=== PATIENT | male | born 1995 | race Caucasian/White ===

== ENCOUNTER 2018-08-30 00:26 | Inpatient (IN) ==
[2018-08-30] MEDS ORDERED: Aluminum/Magnesium/Simethacone Susp 30 ML UDC PO ONE (00:48)
[2018-08-30] MEDS ORDERED: Morphine Sulfate Inj 8 MG/ML Vial IV.PUSH ONE (00:48)
[2018-08-30] MEDS ORDERED: Sod Chloride 0.9% Inj 1,000 ML IV.SIG ONE (00:48)
--- NOTE | 2018-08-30 00:52 | ED ---
HPI General Chief Complaint: Abdominal Pain Stated Complaint: Abd pain Time Seen by Provider: 08/30/18 00:40 Source: patient Mode of arrival: ambulatory Limitations: no limitations History of Present Illness HPI narrative: The patient is 22 years old and arrives with a complaint of abdominal pain for the past 2 days. He reports pain is primarily in the upper abdomen. No fever. One episode of vomiting occurred at the onset of pain. Patient reports loose stools over the past few days. Patient reports tolerating oral hydration without difficulty. Solid foods lead to vomiting. Patient denies subjective fever however upon arrival here her temp is 100.3. No similar prior episodes. Patient is otherwise healthy. MD complaint: Reports abdominal pain Onset (ago): day(s) Pain Consistency: constant Location: Reports epigastric Severity: moderate Quality: Reports cramping Radiation: Reports none Migration to: Reports no migration Relieving factors: nothing Exacerbating factors: eating and movement Associated symptoms: Reports nausea, vomiting and diarrhea Related Data Home Medications Medication Instructions Recorded Confirmed omeprazole 40 mg PO DAILY 08/30/18 08/30/18 Allergies Allergy/AdvReac Type Severity Reaction Status Date / Time No Known Allergies Allergy Verified 08/30/18 00:30 Review of Systems ROS: all other systems reviewed are negative PMFSH Medical History Medical History Patient denies medical problems (Acute) Surgical History Surgical History No history of previous surgery (Acute) Social History Social History Substance History: No History of Abuse Second Hand Smoke Exposure: No Smoking Status: Never smoker How Often Do You Have a Drink Containing Alcohol: 2 to 3 times a week Recent Travel in [facility] within the Last 8 Weeks: No Recent Out of Country Travel within the Last 8 Weeks: No Immunization History Tetanus Immunization: >5 Years Exam Narrative Exam Narrative: GENERAL: 22-year-old male well-nourished well-developed mild distress secondary to pain SKIN: Focused skin assessment warm/dry. HEAD: Atraumatic. Normocephalic. EYES: Pupils equal and round. No scleral icterus. No injection or drainage. ENT: No nasal bleeding or discharge. Mucous membranes pink and moist. NECK: Trachea midline. No JVD. CARDIOVASCULAR: Regular rate and rhythm. No murmur appreciated. RESPIRATORY: No accessory muscle use. Clear to auscultation. Breath sounds equal bilaterally. GASTROINTESTINAL: Tenderness palpation in the epigastrium. Voluntary guarding. MUSCULOSKELETAL: No obvious deformities. No clubbing. No cyanosis. No edema. NEUROLOGICAL: Awake and alert. No obvious cranial nerve deficits. Motor grossly within normal limits. Normal speech. PSYCHIATRIC: Appropriate mood and affect; insight and judgment normal. Course Initial Documented Vital Signs Temperature 100.2 F H 08/30/18 00:28 Pulse Rate 103 H 08/30/18 00:28 Respiratory Rate 16 08/30/18 00:28 Blood Pressure 152/82 H 08/30/18 00:28 Pulse Oximetry 99 08/30/18 00:28 Last Documented Vital Signs Temperature 100.2 F H 08/30/18 00:28 Pulse Rate 103 H 08/30/18 00:28 Respiratory Rate 18 08/30/18 01:39 Blood Pressure 152/82 H 08/30/18 00:28 Pulse Oximetry 99 08/30/18 00:28 Medical Decision Making MDM Narrative Medical decision making narrative: The lipase is elevated at approximately 1250. The patient reports drinking 3-4 beers once or twice a week. He denies alcohol abuse otherwise. Case discussed with hospitalist Dr. Brown. Medical Screen Exam Complete: Yes Emergency Medical Condition: Yes Differential Diagnosis Differential Diagnosis: Constipation, Gastritis, Acute Cholecystitis, Biliary Colic, Pancreatitis, MARK, Hepatitis, Bowel Obstruction, Cystitis, Mesenteric Ischemia, AAA, Appendicitis, Renal Stone/Hydronephrosis, GERD, perforated viscous Lab Data Lab results reviewed: Yes I reviewed the patient's lab results. Result diagrams: 08/30/18 00:50 08/30/18 00:50 Lab Results 08/30/18 08/30/18 08/30/18 Range/Units 00:50 00:50 01:20 WBC 10.6 (4.0-11.0) th/mm3 RBC 4.60 (4.50-5.90) mil/mm3 Hgb 14.9 (13.0-17.0) gm/dL Hct 44.0 (39.0-51.0) % MCV 95.6 (80.0-100.0) fL MCH 32.4 (27.0-34.0) pg MCHC 33.9 (32.0-36.0) % RDW 13.2 (11.6-17.2) % Plt Count 159 (150-450) th/mm3 MPV 8.4 (7.0-11.0) fL Neut % (Auto) 78.7 H (16.0-70.0) % Lymph % (Auto) 11.7 (9.0-44.0) % [place] % (Auto) 8.8 H (0.0-8.0) % Eos % (Auto) 0.6 (0.0-4.0) % Baso % (Auto) 0.2 (0.0-2.0) % Neut # (Auto) 8.3 H (1.8-7.7) th/mm3 Lymph # (Auto) 1.2 (1.0-4.8) th/mm3 [place] # (Auto) 0.9 (0.0-0.9) th/mm3 Eos # (Auto) 0.1 (0.0-0.4) th/mm3 Baso # (Auto) 0.0 (0.0-0.2) th/mm3 WBC Differential . Differential Comment Auto diff final Sodium 138 (136-145) meq/L Potassium 4.2 (3.5-5.1) meq/L Chloride 104 (98-107) meq/L Carbon Dioxide 27.7 (21.0-32.0) meq/L Anion Gap 6 (5-15) meq/L BUN 7 (7-18) mg/dL Creatinine 1.01 (0.60-1.30) mg/dL Estimated GFR Greater than 89 (>89) mL/min Random Glucose 102 (74-106) mg/dL Calcium 9.0 (8.5-10.1) mg/dL Total Bilirubin 1.2 H (0.2-1.0) mg/dL AST 16 (15-37) U/L ALT 22 (12-78) U/L Alkaline Phosphatase 56 (45-117) U/L Total Protein 7.7 (6.4-8.2) g/dL Albumin 4.3 (3.4-5.0) g/dL Lipase 1248 H (73-393) U/L Urine Color Yellow (Yellw/Straw) Urine Clarity Hazy H (Clear) Urine pH 6.0 (5.0-8.5) Ur Specific [place] 1.015 (1.002-1.035) Urine Protein Negative (Neg-Trace) mg/dL Urine Glucose (UA) Negative (Negative) mg/dL Urine Ketones 20 (Negative) mg/dL Urine Occult Blood Negative (Negative) Urine Nitrate Negative (Negative) Urine Bilirubin Negative (Negative) Urine Urobilinogen Less than 2 (Less than 2) mg/dL Ur Leukocyte Esterase Negative (Negative) Urine RBC Less than 1 (0-3) /hpf Urine WBC 1 (0-5) /hpf Ur Squamous Epith Cells <1 (0-5) /hpf Urine Mucus Few H (Occasional) /lpf Micro UA Comment Culture not ind Ur Microscopic Review Not Reportable Urine Culture Comments Culture not ind LFTs normal Imaging Data Attestation: I personally reviewed and interpreted this imaging study as follows : (No sign of appendicitis) Radiologist's impression: Abdomen/Pelvis CT 08/30/18 00:48 CONCLUSION: No evidence of acute abdominal or pelvic process. No masses are identified. Discharge Plan Discharge Disposition Patient Disposition: 30 Still Patient Physicians Team ED Provider: Waylon Segura Primary Care Provider: Primary Care Jayla Armstrong Attending Provider: Miesha Brown Status ED Status: Admitted Observation Patient
[2018-08-30 01:04] LABS: Baso % (Auto) 0.2 % (0.0-2.0); Eos # (Auto) 0.1 th/mm3 (0.0-0.4); Eos % (Auto) 0.6 % (0.0-4.0); Hemoglobin 14.9 gm/dL (13.0-17.0); Lymph # (Auto) 1.2 th/mm3 (1.0-4.8); Lymph % (Auto) 11.7 % (9.0-44.0); Mean Corpuscular HGB Conc 33.9 % (32.0-36.0); Mean Corpuscular Hemoglobin 32.4 pg (27.0-34.0); Mean Corpuscular Volume 95.6 fL (80.0-100.0); Mean Platelet Volume 8.4 fL (7.0-11.0); Mono # (Auto) 0.9 th/mm3 (0.0-0.9); Mono % (Auto) 8.8 % (0.0-8.0); Neut # (Auto) 8.3 th/mm3 (1.8-7.7); Neut % (Auto) 78.7 % (16.0-70.0); Platelet Count 159 th/mm3 (150-450); Red Cell Distribution Width 13.2 % (11.6-17.2); White Blood Count 10.6 th/mm3 (4.0-11.0)
[2018-08-30] MEDS ORDERED: Morphine Inj 4 MG/ML Vial IV.SIG ONE (01:15)
[2018-08-30 01:21] LABS: Alanine Aminotransferase 22 U/L (12-78); Albumin 4.3 g/dL (3.4-5.0); Anion Gap 6 meq/L (5-15); Aspartate Aminotransferase 16 U/L (15-37); Blood Urea Nitrogen 7 mg/dL (7-18); Carbon Dioxide 27.7 meq/L (21.0-32.0); Chloride 104 meq/L (98-107); Glomerular Filtration Rate Greater Than 89 mL/min (>89); Glucose,Random 102 mg/dL (74-106); Lipase 1248 U/L (73-393); Potassium 4.2 meq/L (3.5-5.1); Sodium 138 meq/L (136-145)
[2018-08-30 01:23] LABS: Alkaline Phosphatase 56 U/L (45-117); Total Protein 7.7 g/dL (6.4-8.2)
[2018-08-30] MEDS ORDERED: Piperacil/Tazo 4.5 GM Premix 4.5 GM/100 ML BAG IV.SIG ONE (01:30)
[2018-08-30 01:34] LABS: Bilirubin,Urine Negative (Negative); Clarity,Urine Hazy (Clear); Color,Urine Yellow (Yellw/Straw); Glucose,Urine (UA) Negative (Negative); Leukocyte Esterase,Urine Negative (Negative); Mucus,Urine Few /lpf (Occasional); Nitrite,Urine Negative (Negative); Specific Gravity,Urine 1.015 (1.002-1.035); Squamous Epithelial Cell,Urine <1 /hpf (0-5)
--- NOTE | 2018-08-30 02:41 | CT ---
EXAM DATE: 08/30/2018 12:50 AM EDT AGE/SEX: 22 years / Male INDICATIONS: Upper abdominal pain with nausea and vomiting. CLINICAL DATA: This is the patient's initial encounter. Patient reports that signs and symptoms have been present for 2 days and indicates a pain score of 4/10. MEDICAL/SURGICAL HISTORY: None. None. ORAL CONTRAST: No oral contrast ingested. RADIATION DOSE: 5.91 CTDI (mGy) COMPARISON: No prior exams available for comparison. TECHNIQUE: Multiple contiguous axial images were obtained through the abdomen and pelvis following b olus infusion of 95 ml Omnipaque 350 (iohexol) nonionic water-soluble contrast as a single exam dos e. No oral contrast ingested. Using automated exposure control and adjustment of the mA and/or kV ac cording to patient size, radiation dose was kept as low as reasonably achievable to obtain optimal di agnostic quality images. DICOM format image data is available electronically for review and comparis on. FINDINGS: Examination of the lung bases demonstrates no abnormality. No pleural fluid is identified. No pulmona ry nodules are present. The liver and spleen are free of focal defects. The gallbladder and pancreas demonstrate no abnormality. The adrenal glands are normal. The kidneys demonstrate no evidence of cathy id renal mass or hydronephrosis. No free fluid or abdominal masses are identified. No para-aortic jared nopathy is seen. Examination of the pelvis demonstrates no evidence of free fluid or pelvic mass. No abnormally enlarg ed inguinal or retroperitoneal lymph nodes are present. The bladder is unremarkable. CONCLUSION: No evidence of acute abdominal or pelvic process. No masses are identified. Electronically signed by: Ildefonso Brooke MD 08/30/2018 2:40 AM EDT
--- NOTE | 2018-08-30 03:30 | P.HP ---
History of Present Illness Service: [facility] Primary Care Physician: No Primary Care Physician History of Present Illness: 22-year-old male with no significant past medical history for evaluation of abdominal pain. The patient reports upon waking on Monday had severe epigastric pain. The pain does not radiate. He endorses nausea and emesis x1. The pain has not subsided and he came to the emergency department for further evaluation. No fever/chills. No chest pain or shortness of breath. No diarrhea. Review of Systems All other systems reviewed negative except as stated in HPI PMFSH - History History Provided By: Patient - Medical History Medical History: Medical History (Last Reviewed 08/30/18 @ 03:28 by Miesha Brown MD) Patient denies medical problems - Surgical History Surgical History: Surgical History (Last Reviewed 08/30/18 @ 03:28 by Miesha Brown MD) No history of previous surgery - Family History Family History: Family History (Last Updated 08/30/18 @ 03:28 by Miesha Brown MD) Other Family history normal - Tobacco History Second Hand Smoke Exposure: No Tobacco Use In Past 30 Days: No Smoking Status: Never smoker - Alcohol History How Often Do You Have a Drink Containing Alcohol: 2 to 3 times a week - Substance Use History Substance History: No History of Abuse - Travel History Recent Travel in the [place] Within the Last 8 Weeks: No Recent Travel Out of the Country Within the Last 8 Weeks: No - Immunization History Tetanus Immunization: >5 Years Medications and Allergies Active Medications: Active Medications Sodium Chloride (Ns Flush) 2 ml IV.FLUSH PRN PRN PRN Reason: FLUSH AFTER USING IV ACCESS Last Admin: 08/30/18 01:17 Dose: 2 ml Allergies Allergy/AdvReac Type Severity Reaction Status Date / Time No Known Allergies Allergy Verified 08/30/18 00:30 Home Medications Medication Instructions Recorded Confirmed Type omeprazole 40 mg PO DAILY 08/30/18 08/30/18 History Exam Vital signs: Vital Signs 08/30/18 00:28 08/30/18 01:39 Temperature 100.2 F H Pulse Rate 103 H Respiratory Rate 16 18 Blood Pressure 152/82 H Pulse Oximetry 99 Intake & Output 08/29/18 08/29/18 08/30/18 06:59 18:59 06:59 Weight 72.575 kg Narrative: Gen.: No acute distress Head: Normocephalic. Atraumatic. EENT: Pupils equal round and reactive to light. Nose without drainage. Airway intact. Throat without injection. Cardiovascular: Regular rate and rhythm. No murmurs, rubs or gallops. Respiratory: Lungs clear to auscultation bilaterally. No wheezes or rhonchi. Abdomen: Soft, tender to palpation in the epigastrium, nondistended. No peritoneal signs. Musculoskeletal: No gross deformities. No edema. Skin: No obvious rashes or erythema. Neuro: Sensory and motor grossly intact. Cranial nerves II through XII grossly intact. Results - Labs CBC & Chem 7: 08/30/18 00:50 08/30/18 00:50 Labs: Laboratory Results - last 24 hr 08/30/18 08/30/18 08/30/18 00:50 00:50 01:20 WBC 10.6 RBC 4.60 Hgb 14.9 Hct 44.0 MCV 95.6 MCH 32.4 MCHC 33.9 RDW 13.2 Plt Count 159 MPV 8.4 Neut % (Auto) 78.7 H Lymph % (Auto) 11.7 [place] % (Auto) 8.8 H Eos % (Auto) 0.6 Baso % (Auto) 0.2 Neut # (Auto) 8.3 H Lymph # (Auto) 1.2 [place] # (Auto) 0.9 Eos # (Auto) 0.1 Baso # (Auto) 0.0 WBC Differential . Differential Comment Auto diff final Sodium 138 Potassium 4.2 Chloride 104 Carbon Dioxide 27.7 Anion Gap 6 BUN 7 Creatinine 1.01 Estimated GFR Greater than 89 Random Glucose 102 Calcium 9.0 Total Bilirubin 1.2 H AST 16 ALT 22 Alkaline Phosphatase 56 Total Protein 7.7 Albumin 4.3 Lipase 1248 H Urine Color Yellow Urine Clarity Hazy H Urine pH 6.0 Ur Specific [place] 1.015 Urine Protein Negative Urine Glucose (UA) Negative Urine Ketones 20 Urine Occult Blood Negative Urine Nitrate Negative Urine Bilirubin Negative Urine Urobilinogen Less than 2 Ur Leukocyte Esterase Negative Urine RBC Less than 1 Urine WBC 1 Ur Squamous Epith Cells <1 Urine Mucus Few H Micro UA Comment Culture not ind Ur Microscopic Review Not Reportable Urine Culture Comments Culture not ind - Imaging Impressions Abdomen/Pelvis CT 08/30/18 00:48 CONCLUSION: No evidence of acute abdominal or pelvic process. No masses are identified. Caprini VTE Risk Assessment Caprini VTE Risk Assessment: No/Low Risk (score <= 1) Caprini Risk Assessment Model: Point Value = 1 Point Value = 2 Point Value = 3 Point Value = 5 Age 41-60 Minor surgery BMI > 25 kg/m2 Swollen legs Varicose veins or History of unexplained or recurrent spontaneous Oral contraceptives or hormone replacement Sepsis (< 1 month) Serious lung disease, including pneumonia (< 1 month) Abnormal pulmonary function Acute myocardial infarction Congestive heart failure (< 1 month) History of inflammatory bowel disease Medical patient at bed rest Age 61-74 Arthroscopic surgery Major open surgery (> 45 min) Laparoscopic surgery (> 45 min) Malignancy Confined to bed (> 72 hours) Immobilizing plaster cast Central venous access Age >= 75 History of VTE Family history of VTE Factor V Leiden Prothrombin [id number] Lupus anticoagulant Anticardiolipin antibodies Elevated serum homocysteine Heparin-induced thrombocytopenia Other congenital or acquired thrombophilia Stroke (< 1 month) Elective arthroplasty Hip, pelvis, or leg fracture Acute spinal cord injury (< 1 month) Prophylaxis Regimen: Total Risk Factor Score Risk Level Prophylaxis Regimen 0-1 Low Early ambulation 2 Moderate Order ONE of the following: *Sequential Compression Device (SCD) *Heparin 5000 units SQ BID 3-4 Higher Order ONE of the following medications: *Heparin 5000 units SQ TID *Enoxaparin/Lovenox 40 mg SQ daily (WT < 150 kg, CrCl > 30 mL/min) *Enoxaparin/Lovenox 30 mg SQ daily (WT < 150 kg, CrCl > 10-29 mL/min) *Enoxaparin/Lovenox 30 mg SQ BID (WT < 150 kg, CrCl > 30 mL/min) AND/OR *Sequential Compression Device (SCD) 5 or more Highest Order ONE of the following medications: *Heparin 5000 units SQ TID (Preferred with Epidurals) *Enoxaparin/Lovenox 40 mg SQ daily (WT < 150 kg, CrCl > 30 mL/min) *Enoxaparin/Lovenox 30 mg SQ daily (WT < 150 kg, CrCl > 10-29 mL/min) *Enoxaparin/Lovenox 30 mg SQ BID (WT < 150 kg, CrCl > 30 mL/min) AND *Sequential Compression Device (SCD) Assessment and Plan - Plan Assessment/plan: 1. Pancreatitis Lipase 1248 CT of the abdomen/pelvis negative for acute process IV fluid hydration N.p.o. Morphine for pain Follow lipase levels FEN N.p.o. Electrolytes: Monitor and replete as needed NS at 125 cc/hour
[2018-08-30] MEDS: Morphine Sulfate Inj 8 MG/ML Vial IV.PUSH PRN ×2 (10:27→18:14)
--- NOTE | 2018-08-30 12:08 | P.PNADD ---
Addendum to Inpatient Note Reason for Addendum: Additional Documentation Additional information: Patient seen and examined, right upper quadrant pain, a 5. Does not want to take narcotics. No nausea, no vomiting. Denies daily alcohol use, indicates he drank 3 beers on Monday. No prior history of pancreatitis. Follow lipase level in the morning
[2018-08-30 20:10] VITALS: O2SAT 98
[2018-08-31] MEDS: Morphine Sulfate Inj 8 MG/ML Vial IV.PUSH PRN (06:08)
[2018-08-31 07:22] LABS: Hematocrit 39.6 % (39.0-51.0); Hemoglobin 13.7 gm/dL (13.0-17.0); Mean Corpuscular HGB Conc 34.7 % (32.0-36.0); Mean Corpuscular Volume 95.2 fL (80.0-100.0); Mean Platelet Volume 8.8 fL (7.0-11.0); Platelet Count 128 th/mm3 (150-450); Red Blood Count 4.16 mil/mm3 (4.50-5.90); Red Cell Distribution Width 12.5 % (11.6-17.2); White Blood Count 6.7 th/mm3 (4.0-11.0)
[2018-08-31 08:02] LABS: Anion Gap 6 meq/L (5-15); Blood Urea Nitrogen 9 mg/dL (7-18); Calcium 8.8 mg/dL (8.5-10.1); Carbon Dioxide 27.6 meq/L (21.0-32.0); Chloride 103 meq/L (98-107); Glomerular Filtration Rate Greater Than 89 mL/min (>89); Glucose,Random 72 mg/dL (74-106); Lipase 227 U/L (73-393); Potassium 4.1 meq/L (3.5-5.1); Sodium 137 meq/L (136-145)
--- NOTE | 2018-08-31 08:46 | P.PN ---
Subjective Interval history: Follow-up for pancreatitis-abdominal pain improved, now a 5. Wants something to drink. No nausea, no vomiting. No fever overnight. Slept fair. Anxious to go home. Denies any chest pain, no shortness of breath. Physical Exam Vital signs: Vital Signs 08/30/18 12:00 08/30/18 16:00 08/30/18 20:00 Temperature 99.3 F 99.5 F 98.2 F Pulse Rate 90 86 107 H Respiratory Rate 17 17 16 Blood Pressure 116/60 138/66 135/78 Pulse Oximetry 98 99 98 08/31/18 00:00 Temperature 99.3 F Pulse Rate 106 H Respiratory Rate 17 Blood Pressure 121/60 Pulse Oximetry 98 Intake & Output 08/30/18 08/31/18 08/31/18 18:59 06:59 18:59 Intake Total 900 / 900 1999 / 1999 Balance 900 / 900 1999 / 1999 Weight 73.5 kg Intake: IV 900 / 900 1999 / 2000 LR 1000 mL Inj 1,000 ML @ 125 900 / 900 2000 / 2000 mls/hr IV.CONT .Q8H [facility] Rx#: [id number] Oral 0 / 0 Other: # Voids 3 2 Date of Last Bowel Movement 08/29/18 # Bowel Movements 0 Narrative: Gen.: 22-year-old well-developed well-nourished. Head: Normocephalic. Atraumatic. EENT: Pupils equal round and reactive to light. Nose without drainage. Airway intact. Throat without injection. Cardiovascular: Regular rate and rhythm. No murmurs, rubs or gallops. Respiratory: Lungs clear to auscultation bilaterally. No wheezes or rhonchi. Abdomen: Soft, tender to palpation in the epigastrium, nondistended. No peritoneal signs. Musculoskeletal: No gross deformities. No edema. Skin: No obvious rashes or erythema. Neuro: Neurologically intact. No focal deficits. Results - Labs CBC & Chem 7: 08/31/18 05:53 08/31/18 05:53 Laboratory Results - last 24 hr 08/30/18 08/31/18 08/31/18 17:19 05:53 05:53 WBC 6.7 RBC 4.16 L Hgb 13.7 Hct 39.6 MCV 95.2 MCH 33.0 MCHC 34.7 RDW 12.5 Plt Count 128 L MPV 8.8 Sodium 137 Potassium 4.1 Chloride 103 Carbon Dioxide 27.6 Anion Gap 6 BUN 9 Creatinine 0.89 Estimated GFR Greater than 89 Random Glucose 72 L Calcium 8.8 Lipase 277 227 Assessment and Plan - Assessment (1) Pancreatitis Code(s): K85.90 - Acute pancreatitis without necrosis or infection, unspecified Status: Acute - Plan Assessment/plan: 22-year-old male admitted with abdominal pain, lipase [address] of the abdomen negative for acute process Acute pancreatitis Lipase 1248 CT of the abdomen/pelvis negative for acute process -IV fluid hydration -Lipase trending down, 277. Start clear liquid diet. If he tolerates well, we will advance to soft. N.p.o. -Morphine for pain Electrolytes reviewed, stable If he tolerates diet well, he will be discharged today Follow-up with PCP Instructed to avoid alcohol Heart healthy diet Activity as tolerated, may return to work in 2 days. Code Status: Full code Discussed Condition With: RN, patient Discharge Planning: dc today
[2018-08-31 13:28] VITALS: BP 126/73; PULSE 91; RESP 17; TEMP 99.4
== END 2018-08-31 13:39 | disposition home or self-care (01) ==
LOC: NEPE 00:26 → NEDA 00:26 → N07 04:00
PROVIDERS: ADMIT Hospitalist; ATTEND Hospitalist